=== PATIENT | female | born 1990 | race Caucasian/White ===

== ENCOUNTER 2019-10-01 12:15 | Inpatient (IN) | payer BC ==
[~2019-10-01] VITALS: Ht 157.5 cm; Wt 72.7 kg
[2019-10-04 19:00] VITALS: BP 119/59; PULSE 84; TEMP 97.7
--- NOTE | 2019-10-04 19:00 | NUR ---
1900 G1L0 40.5 WEEK GEST TO LR6 FOR CYTOTEC INDUCTION. HAS BEEN SEEN IN [place] UNTIL 39 WEEKS WHEN THEY WERE NO LONGER ABLE TO DO DELIVIERIES AND TRANSFERRED TO [facility] IN [place]. ADM ASSESSMENT DONE. STATES HAS HAD INFLUENZA B AND SHE IS ON TAMAFLU WITH THREE MORE DOES TO TAKE. EFM ON. STATES HAS BEEN FEELING NO CONTRACTIONS. 1920 160 SECOND CONTRACTIONS NOTED WITH LATE/VARIABLE DECEL NOTED. 1930 INT STARTED IN LEFT WRIST. PO TAKEN.
[2019-10-04] MEDS ORDERED: TAMIFLU 75MG75 MG PO (19:37)
[2019-10-04] MEDS ORDERED: PRENATAL TABLET PO (19:37)
[2019-10-04 20:00] VITALS: BP 93/55; PULSE 83; TEMP 97.7
--- NOTE | 2019-10-04 20:00 | NUR ---
1999 CYTOTEC 50 INSERTED VAGINALLY. TO LEFT SIDE. 2019 170 SECOND CONTRACTION NOTED. FHT BASE 130 WITH GOOD VARIABILITY
[2019-10-04 20:14] LABS: BASO % 0.2 % (0.0-2.0); EOS # 0.1 (0.0-0.7); EOS % 1.4 % (0-4.0); GRAN # 6.3 (1.4-6.5); GRAN % 71.1 % (42.2-75.2); HEMATOCRIT 33.8 % (37.0-47.0); HEMOGLOBIN 11.1 g/dl (12.5-16.0); LYMPH # 1.7 (1.2-3.4); LYMPH % 19.4 % (20.0-51.0); MEAN CELL VOLUME 90 fl (80.0-100.0); MEAN CORPUSCULAR HEMOGLOBIN 30 pg (27.0-31.0); MEAN CORPUSCULAR HGB CONC 33 g/dl (33.0-37.0); MEAN PLATELET VOLUME 12.4 fl (7.4-10.4); MONO # 0.7 (0.1-0.6); MONO % 7.6 % (1.7-9.3); PLATELET COUNT 149 K/mm3 (130-400); RED BLOOD COUNT 3.74 M/mm3 (4.10-5.30); REDCELL DISTRIBUTION WIDTH-CV 14.4 % (11.5-14.5)
[2019-10-04 20:30] VITALS: BP 100/55; PULSE 85
--- NOTE | 2019-10-04 20:50 | NUR ---
2049 RESTING ON LEFT SIDE. FHT BASE 130 WITH ACCELS NOTED. FHT'S DECREASE TO 100 THEN RETURN AND THEN UNABLE TO PICK THEM UP. 80'S HEARD FOR FEW SECONDS BUT MATCHED MOM'S HEARTRATE. TURNED TO RIGHT SIDE WITH FHT'S AT 120'S.
--- NOTE | 2019-10-04 22:00 | NUR ---
2200 NO REGULAR CONTRACTIONS NOTED ON EFM AND NONE FELT BY PT.
[2019-10-05] VITALS (59 sets, daily range): BP systolic 89–124; BP diastolic 42–82; PULSE 63–96; TEMP 97.3–98.7
--- NOTE | 2019-10-05 | NUR ---
0000 UP TO BR AND VOIDED. STATES HAS NOT BEEN SLEEPING AND HAS FELT NO CONTRACTIONS SINCE PLACEMENT OF FIRST CYTOTEC. RETURNED TO BED AND EFM ON. VISTARIL 50MG PO GIVEN. CYTOTEC 25 INSERTED AFTER SVE WITH NO CERVICAL CHANGE BUT PRESENTING PART LOWER AND BLOODY SHOW NOTED ON GLOVE AFTER EXAM.
--- NOTE | 2019-10-05 00:20 | NUR ---
0020 CALLED OUT STATING SHE FEELS SOMETHING LEAKING OUT. SCANT AMOUNT WATERY, DARK RED BLOOD NOTED. PAD AND PANTIES ON.
--- NOTE | 2019-10-05 01:00 | NUR ---
0100 PAD CHECKED WITH SCANT AMT DRIED DARK RED BLOOD NOTED. NO FLUID. TO SEMI FOWLERS. CONTRACTIONS NOTED EVERY 1 MINUTE. NOT FELT BY PT BUT DOES STATE IS STARTING TO HAVE SOME BACK DISCOMFORT.
--- NOTE | 2019-10-05 01:15 | NUR ---
0115 IV FLUIDS STARTED AND BOLUS GIVEN.
--- NOTE | 2019-10-05 02:40 | NUR ---
0240 RESTING ON LEFT SIDE AND UNABLE TO HEEL BREASTER CONTRACTION PATTERN ON EFM. UTERUS PALPATED MOD CONTRACTIONS EVERY ONE TO TWO MINUTES.
--- NOTE | 2019-10-05 02:53 | NUR ---
0220 ON LEFT SIDE. HAVING SOME BACK PAIN. NOT REALLY FEELING CONTRACTIONS. UTERUS PALPATES MOD WITH CONTRACTION. UNABLE TO PLASTICATOR CONTRACTIONS ON EFM WHILE LYING ON SIDE. #2 LR JOHN.
--- NOTE | 2019-10-05 03:40 | NUR ---
0340 POSITION CHANGED TO LEFT WEDGE TO HELP FIBERGLASS INSULATION INSTALLER CONTRACTIONS ON EFM. CONTRACTIONS EVERY 1 TO 4 MINUTES. VARIABLE DECEL NOTED X2 WITH BASELINE FHR AT 140 WITH DECREASE TO 90'S AND RAPID RETURN TO BL. 0400 UP TO BR TO VOID. RETURNED TO BED. NO VAG BLEEDING OR FLUID NOTED. 0410 SVE 0/25/-3. STATES IS FEELING MORE UNCOMFORTABLE WITH CONTRACTIONS. VARIABLE DECEL NOTED AFTER SVE FROM BASELINE 140 TO 90'S X 30 SECOND AND THEN RETURN TO BASELINE. TURNED TO LEFT SIDE. UNABLE TO FIBERGLASS INSULATION INSTALLER CONTRACTION PATTERN WHILE ON SIDE. 0420 DR CORBETT NOTIFIED OF FREQUENT CONTRACTIONS, SVE AND FHR AND VARIABLE DECELS.
--- NOTE | 2019-10-05 06:20 | NUR ---
Report from Siva AKBAR to assume care of patient at this time.
--- NOTE | 2019-10-05 06:30 | NUR ---
This RN to bedside. Patient sitting in rocking chair. Patient reports tightening with contractions but denies cramping/pain. Denies needs at this time. at bedside. Call light within reach.
--- NOTE | 2019-10-05 06:40 | NUR ---
Patient repositioned to right lateral in bed. Reports continued tightening with contractions, denies pain. at bedside. Call light within reach.
--- NOTE | 2019-10-05 07:45 | NUR ---
Patient sleeping on right lateral when RN enters room. Plan of care discussed starting Pitocin per 's order. Verbalizes understanding, denies questions or concerns. Pitocin started per protocol, see eMAR. Patient encouraged to continue resting. Call light within reach.
--- NOTE | 2019-10-05 08:00 | NUR ---
Patient resting upon RN entry to room, remains in far right lateral position. TOCO adjusted to trace uterine activity better. Will continue to monitor. Denies needs. Call light within reach.
--- NOTE | 2019-10-05 08:45 | NUR ---
to bedside. AROM at 0845, small amount of clear fluid noted. SVE /-3. FHR deceleration into 80-90bpm lasting 5 minutes following AROM. Patient repositioned to left tilt, then right tilt, then hands/knees. Pitocin off. at bedside throughout deceleration. FHR returns to 130s at 0850. Patient to left tilt at 0855. Will continue to monitor closely. at bedside. Plan of care discussed with patient, questions answered by . Call light within reach.
--- NOTE | 2019-10-05 09:20 | NUR ---
Patient up to bathroom, voids without difficulty. Patient to birthing ball. Patient reports mild discomfort with contractions. Denies needs at this time. Call light within reach.
--- NOTE | 2019-10-05 10:05 | NUR ---
Patient moved from birthing ball to edge of bed for epidural placement. FHR deceleration into 90s x1 minute. Patient repositioned to left lateral. Pitocin off at this time per .
--- NOTE | 2019-10-05 10:30 | NUR ---
1015: Corie CENTENO at bedside for epidural placement. 1020: Lidocaine. 1023: Epidural Catheter. 1024: Test Dose given by Corie CENTENO, no adverse reaction noted.
--- NOTE | 2019-10-05 10:55 | NUR ---
Patient comfortable with epidural in place. Escobar catheter placed. SVE 2-3/80-2, clear fluid noted with exam. Patient repositioned to left tilt with peanut ball in place. Encouraged to rest. Call light within reach.
--- NOTE | 2019-10-05 12:05 | NUR ---
Patient comfortable with epidural. SVE 3+/80/-2, cervix more midposition now. Patient repositioned to right lateral with peanut ball in place. Denies pain or needs at this time.
--- NOTE | 2019-10-05 12:15 | NUR ---
FHR deceleration into 90bpm x2 minutes. FHR returns to baseline of 130s, then deceleration into 90s x2 minutes again noted. Patient repositioned to left tilt. Pitocin off. Will notify .
--- NOTE | 2019-10-05 13:50 | NUR ---
to bedside. SVE -2 per provider, cervix unchanged. Patient repositioned to right tilt with peanut ball in place. Plan of care discussed with patient and . Call light within reach.
--- NOTE | 2019-10-05 14:25 | NUR ---
Patient repositioned to left tilt. Denies pain or needs. at bedside. Call light within reach.
--- NOTE | 2019-10-05 14:35 | NUR ---
at bedside. Plan of care discussed. Decision for section made at this time. Pitocin off. Escobar catheter emptied, 250ml clear yellow urine noted. EFMs off at 1445, patient to OR at that time.
--- NOTE | 2019-10-05 15:50 | NUR ---
Patient into PACU. This RN remains at bedside.
--- NOTE | 2019-10-05 16:20 | NUR ---
Patient into Room 210 via bed. Oriented to room and plan of care. at bedside. Call light within reach.
--- NOTE | 2019-10-05 18:25 | NUR ---
Report to Mathew AKBAR to assume care of patient at this time.
[2019-10-06 03:55] VITALS: BP 109/62; PULSE 78; TEMP 97.5
[2019-10-06 07:30] VITALS: BP 109/51; PULSE 72; TEMP 98.2
[2019-10-06 12:13] VITALS: BP 111/54; PULSE 81; TEMP 98.9
--- NOTE | 2019-10-06 12:45 | NUR ---
Initial visit; Parents thanked Head Buyer Tobacco for offering congratulations and God's blessings for the of their son. Head Buyer Tobacco thanked family for choosing [facility].
[2019-10-06] MEDS ORDERED: PERCOCET 325 MG1 TA2 PO (13:27)
[2019-10-06] MEDS ORDERED: IBU800 M1 PO (13:27)
[2019-10-06 16:56] VITALS: BP 105/37; PULSE 85; TEMP 97.8
[2019-10-06 16:57] VITALS: BP 96/51; PULSE 89
[2019-10-06 19:15] VITALS: BP 111/57; PULSE 73; TEMP 98.3
[2019-10-07 07:15] VITALS: BP 111/64; PULSE 90; TEMP 97.9
[2019-10-07 16:19] VITALS: BP 107/61; PULSE 99; TEMP 97.8
[2019-10-07 19:05] VITALS: BP 115/62; PULSE 90; TEMP 98
[2019-10-08 07:05] VITALS: BP 108/57; PULSE 78; TEMP 97.2
--- NOTE | 2019-10-08 14:20 | NUR ---
Patient given discharge instructions. Denies questions. Escorted off unit.
== END 2019-10-08 14:20 | disposition home or self-care (01) | DRG 788 ==
LOC: LDR → OB 10-05 18:11
PROVIDERS: ADMIT Student in an Organized Health Care Education/Training Program
PROC: 10D00Z1 Extraction of Products of Conception, Low, Open Approach (ICD-10-PCS; principal; 2019-10-05)
PROC: 3E0P7VZ Introduction of Hormone into Female Reproductive, Via Natural or Artificial Opening (ICD-10-PCS; 2019-10-05)
PROC: 3E033VJ Introduction of Other Hormone into Peripheral Vein, Percutaneous Approach (ICD-10-PCS; 2019-10-05)
PROC: 10907ZC Drainage of Amniotic Fluid, Therapeutic from Products of Conception, Via Natural or Artificial Opening (ICD-10-PCS; 2019-10-05)
DX: O48.0 Post-term pregnancy (principal); Z37.0 Single live birth; Z3A.40 40 weeks gestation of pregnancy; O76 Abnormality in fetal heart rate and rhythm complicating labor and delivery
CPT/HCPCS: J0690; J1100; J2270; J2405; J2590; J3010; J7120

== ENCOUNTER 2022-03-22 08:10 | Inpatient (IN) | payer OTHER ==
[~2022-03-22] VITALS: Ht 157.5 cm; Wt 75.5 kg
[~2022-03-22 08:10] MED LIST: IBU800 M1 PO; PERCOCET 325 MG1 TA2 PO; PRENATAL TABLET PO; TAMIFLU 75MG75 MG PO
[2022-03-27] VITALS (18 sets, daily range): BP systolic 88–113; BP diastolic 42–81; PULSE 65–115; TEMP 97.7–98.4
--- NOTE | 2022-03-27 09:30 | NUR ---
0930-Patient ambulatory to 213 for scheduled repeat c/s. Assisted into gown and oriented to room. Placed on EFM. Category I strip. VSS. Patient assessment complete and consents reviewed and signed. IV started, blood collected and sent to lab per MD order. LR infusing.
[2022-03-27 09:59] LABS: BASO % 0.2 % (0.0-2.0); EOS # 0.1 K/mm3 (0.0-0.7); EOS % 0.7 % (0.0-4.0); GRAN # 10.2 K/mm3 (1.4-6.5); GRAN % 81.1 % (42.2-75.2); HEMOGLOBIN 11.6 g/dl (12.5-16.0); LYMPH # 1.6 K/mm3 (1.2-3.4); LYMPH % 12.7 % (20.0-51.0); MEAN CELL VOLUME 88 fl (80.0-100.0); MEAN CORPUSCULAR HEMOGLOBIN 29 pg (27-31); MEAN CORPUSCULAR HGB CONC 33 g/dl (33.0-37.0); MEAN PLATELET VOLUME 11.9 fl (7.4-10.4); MONO # 0.6 K/mm3 (0.1-0.6); MONO % 4.9 % (1.7-9.3); PLATELET COUNT 172 K/mm3 (130-400); RED BLOOD COUNT 4.03 M/mm3 (4.10-5.30); REDCELL DISTRIBUTION WIDTH-CV 14.8 % (11.5-14.5)
[2022-03-27 10:06] LABS: HEMATOCRIT 35.3 % (37.0-47.0)
[2022-03-28 08:00] VITALS: BP 104/47; PULSE 87; TEMP 97.6
[2022-03-28] MEDS ORDERED: IBU800 M1 PO (08:39)
[2022-03-28] MEDS ORDERED: PERCOCET 325 MG1 TA2 PO (08:39)
--- NOTE | 2022-03-28 11:43 | NUR ---
Initial visit; Parents thanked Apron Operator for offering congratulations and God's blessings for the of their daughter. Apron Operator thanked family for choosing [facility].
[2022-03-28 16:00] VITALS: BP 94/57; PULSE 97; TEMP 97.8
[2022-03-28 20:00] VITALS: BP 115/57; PULSE 70; TEMP 97.9
[2022-03-29 08:00] VITALS: BP 120/58; PULSE 99; TEMP 98.3
--- NOTE | 2022-03-29 13:00 | NUR ---
1300-Reviewed discharge insturctions with patient. Instructed on need to follow up at 2 and 6 week scheduled appointments. Verbalized undertanding. 1330-Ambulatory off unit with and spouse.
== END 2022-03-29 13:30 | disposition home or self-care (01) | DRG 788 ==
LOC: OB 03-27 08:09
PROVIDERS: ADMIT Student in an Organized Health Care Education/Training Program
PROC: 10D00Z1 Extraction of Products of Conception, Low, Open Approach (ICD-10-PCS; principal; 2022-03-27)
DX: O34.211 Maternal care for low transverse scar from previous cesarean delivery (principal); Z3A.39 39 weeks gestation of pregnancy; Z37.0 Single live birth; Z23 Encounter for immunization
CPT/HCPCS: J0171; J0690; J1100; J1885; J2370; J2405; J2590; J7120